=== PATIENT | male | born 1985 | race Caucasian/White ===

== ENCOUNTER 2017-04-15 20:27 | Emergency (ER) | payer MEDICAID ==
[~2017-04-15] VITALS: Ht 167.6 cm; Wt 88.5 kg
[2017-04-15 20:33] VITALS: BP 146/90
--- NOTE | 2017-04-15 21:06 | NUR ---
PT TAKEN TO [facility] FROM [facility]
--- NOTE | 2017-04-15 21:14 | NUR ---
PT RETURN FROM [facility] TO [facility]
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
--- NOTE | 2017-04-15 22:33 | NUR ---
Dr. Mcgrath evaluating patient.
[2017-04-15] MEDS ORDERED: IBUPROFEN 800 MG TAB PO ONE (22:55)
[2017-04-15 23:08] VITALS: BP 132/88
== END 2017-04-15 23:09 | disposition home or self-care (01) ==
LOC: MED 20:27
DX: S63.502A Unspecified sprain of left wrist, initial encounter (principal); W22.8XXA Striking against or struck by other objects, initial encounter; Y93.89 Activity, other specified; Y92.89 Other specified places as the place of occurrence of the external cause; Y99.8 Other external cause status
CPT/HCPCS: 73130; 99284

== ENCOUNTER 2018-04-30 19:51 | Emergency (ER) | payer SELFPAY ==
[~2018-04-30] VITALS: Ht 167.6 cm; Wt 86.2 kg
[2018-04-30 20:31] VITALS: BP 137/82
--- NOTE | 2018-04-30 20:52 | NUR ---
pt ambulated to [facility]
--- NOTE | 2018-04-30 21:00 | NUR ---
C/O WORSENING RASH ON ANTERIOR LLE, NOTICED 2 DAYS AGO. REPORTS PAIN 6/10 ACHING AND TIGHTNESS, +TENDERNESS, DENIES ITCHINESS. DENIES TRAUMA/INJURY.
--- NOTE | 2018-04-30 21:44 | NUR ---
Patient discharged with v/s stable. Written and verbal after care instructions given and explained. Patient alert, oriented and verbalized understanding of instructions. Ambulatory with steady gait. All questions addressed prior to discharge. ID band removed. Patient advised to follow up with PMD. Rx of KEFLEX, MOTRIN AND SEPTRA given. Patient educated on indication of medication including possible reaction and side effects. Opportunity to ask questions provided and answered.
== END 2018-04-30 21:44 | disposition home or self-care (01) ==
LOC: MED 19:51
DX: L03.116 Cellulitis of left lower limb (principal)
CPT/HCPCS: 90471; 90715; 99283